=== PATIENT | male | born 1970 | race Caucasian/White ===

== ENCOUNTER → 2016-09-11 | Outpatient (CLI) | payer OTHER ==
[~2016-09-11] MED LIST: ALEVE220 MG PO; CARAFATE1 GM PO; LORTAB 5/500 501 TAB PO; NEXIUM40 MG PO; PERCOCET 5/3251 EACH PO
[2016-09-11 11:18] LABS: LYMPH # 1.4 K/mm3 (0.7-4.5)
[2016-09-11 11:29] LABS: HEMOGLOBIN 17.7 g/dL (14.1-18.0)
[2016-09-11 12:46] LABS: BUN 10 mg/dL (7-18); GFR (ESTIMATED) 72 ML/MIN (>60)
== END ==
LOC: LAB 11:07
PROVIDERS: Surgery
DX: Z01.812 Encounter for preprocedural laboratory examination (principal)

== ENCOUNTER → 2017-05-10 | Outpatient (CLI) | payer OTHER ==
--- NOTE | 2017-05-10 17:05 | RADIOLOGY REPORT PS360 ---
PROCEDURE: 2-D M-mode and color Doppler study INDICATIONS FOR THE TEST: Chest pain COPD Heart Murmur Tobacco Smoking Palpitations Fatigue Syncope Edema HypertensionXDiabetes Mellitus Rheumatic Fever SOB GIBSON Obesity Hyperlipidemia Family History HD Additional History PATIENT INFORMATION HEIGHT: 71 WEIGHT:268 GENDER: Male B/P:122/78 2-D/M-MODE INTERPRETATION: 2-D MEASUREMENTS OBSERVED VALUES IN CMS Right Ventricular Dimension (RVDd) 2.4 Interventricular Septum (Thickness)(IVsd) 1.2 Left Ventricular Internal Dimensions(LVIDd) 4.0 Left Ventricular Posterior Wall (Thickness)(LVPWd) 1.1 Aortic Root 4.2 Aortic Cusp Separation 2.4 Left Atrial Dimensions (LAD) 4.3 2D 1. Left atrium is mildly enlarged, left ventricle is normal size, there is mild concentric left ventricular hypertrophy, visually estimated ejection fraction 55% with no obvious regional wall motion abnormality. 2. The right atrium and right ventricle are normal size and contractility. 3. The aortic valve is minimally thickened and fibrosed. 4. The mitral and tricuspid valve are grossly normal. 5. The pulmonic valve is poorly visualized. 6. No significant pericardial effusion noted. DOPPLER INTERROGATION: Doppler interrogation of the aortic, mitral and tricuspid valvular presence of mild mitral and tricuspid regurgitation, tricuspid and jet velocity insufficient for calculation of the right ventricular systolic pressure, grade 1 diastolic dysfunction seen without tissue Doppler evidence of raised left atrial pressure. CONCLUSION: 1. Mildly enlarged left atrium, normal left ventricular size, mild concentric left ventricular hypertrophy, visually estimated ejection fraction 55% with no obvious regional wall motion abnormality, grade 1 diastolic dysfunction seen without tissue Doppler evidence of raised left atrial pressure. 2. Mild mitral and tricuspid regurgitation. 3. No significant pericardial effusion noted.
== END ==
LOC: RT 10:51
DX: R00.0 Tachycardia, unspecified (principal); I11.9 Hypertensive heart disease without heart failure

== ENCOUNTER → 2017-05-25 | Outpatient (CLI) | payer OTHER ==
--- NOTE | 2017-05-25 12:57 | RADIOLOGY REPORT PS360 ---
History and Indications: Hypertension, tobacco use, chest pain Procedure: Patient received a 0.4 mg of Lexiscan, resting heart rate was 67 bpm, resting blood pressure 146/90, with Lexiscan maximum heart achieved was 96 beats per which is less than 85% of the maximum predicted heart rate, and the blood pressure was 144/85. With Lexiscan patient complained of shortness of breath Electrocardiogram: Resting electrocardiogram showed sinus rhythm, with Lexiscan there is less than 1.[address] segment depression noted from the baseline EKG. The EKG portion of the Lexiscan Myoview is nondiagnostic. Cardiac stress and resting SPECT images: Cardiac stress and rest SPECT images were obtained using technetium 99 Myoview 11.1 mCi at rest, and 31.2 mCi at stress, gated SPECT further analysis of segmental wall motion and calculation of ejection fraction also done. Cardiac stress and rest SPECT images show uniform myocardial activity without any segmental perfusion abnormality, computer derived ejection fraction is 49% with no obvious regional wall motion abnormality. Right ventricle is normal size and contractility. Conclusion: 1. The EKG portion of the Lexiscan Myoview is nondiagnostic. 2. No obvious scintigraphic evidence of reversible ischemia seen, computer derived ejection fraction is 49% with no obvious regional wall motion abnormality. Right ventricle is normal size and contractility.
== END ==
LOC: RAD 06:57
DX: I10 Essential (primary) hypertension (principal); I11.9 Hypertensive heart disease without heart failure; I50.30 Unspecified diastolic (congestive) heart failure; G47.33 Obstructive sleep apnea (adult) (pediatric)
CPT/HCPCS: A9502; J2785